=== PATIENT | female | born 1970 | race Two or more races ===

== ENCOUNTER 2017-03-29 19:01 | Emergency (ER) | payer OTHER ==
[~2017-03-29] VITALS: Ht 160 cm; Wt 63.5 kg
--- NOTE | ~2017-03-29 | CT2 ---
[facility] A Service of [facility] RADIOLOGY TEXT RESULTS PATIENT: RUTHY FUENTES LOCATION: [facility] : [birth year] UNIT #: [id number] AGE: [address]: Chinedu Conner DO SEX: F ORDER DR: [id number] [facility] [address] [place], [place] [address] [id number] E MR#: [id number] Acc #: [id number] NAME: RUTHY FUENTES : 1970 SEX: F STUDY DATE/TIME: 03/29/2017 21:24 UNIT: [facility] ROOM: STUDY DESCRIPTION: CT Abd and Pelv W Cont Attending Physician: Chinedu Conner D.O. Ordering Physician: Chinedu Conner D.O. Primary Care Physician: Primary Care Physician No MEDICAL IMAGING REPORT This report is preliminary unless electronic signature is present EXAM CT abdomen and pelvis with IV contrast HISTORY Low abdomen pain for [address] abdomen and pelvis was performed with IV contrast. This CT exam was performed with one or more of the following radiation dose reduction techniques: automatic exposure control, adjustment of mA and/or kV according to patient size, and iterative reconstruction. CT ABDOMEN: No hepatic mass or biliary dilatation. The gallbladder is contracted. Incidental focal fatty infiltration of the left hepatic lobe adjacent to the falciform ligament. The spleen, pancreas, kidneys, and adrenal glands are normal. No bowel dilatation. No ascites. Normal caliber abdominal aorta. CT PELVIS: Tiny umbilical hernia containing fat. Appendectomy. Hysterectomy. Urinary bladder is normal. IMPRESSION No acute findings in the abdomen or pelvis. Dictated by... Mainor Brooke M.D. THIS IS AN ELECTRONICALLY VERIFIED REPORT Mainor Brooke M.D. at 03/30/2017 12:20 PM [facility] A Service of [facility] RADIOLOGY TEXT RESULTS PATIENT: RUTHY FUENTES LOCATION: [facility] : 66 UNIT #: [id number] AGE: [address]: Chinedu Conner DO SEX: F ORDER DR: HUEY/barbara TD: 03/29/2017 23:21 JOB #: [id number] MEDICAL IMAGING REPORT Page 1 of 1 COPY
--- NOTE | ~2017-03-29 | EKG ---
PATIENT: GINA CALLEJAS UNIT #: [id number] Ventricular Rate: 96 BPM Atrial Rate: 96 BPM P-R Interval: 126 ms QRS Duration: 76 ms Q-T Interval: 362 ms QTC Calculation(Bezet): 457 ms P [place]: 29 degrees Calculated R [place]: 54 degrees Calculated T [place]: 36 degrees Diagnosis Line: Normal sinus rhythm Diagnosis Line: Normal ECG Diagnosis Line: No previous ECGs available Diagnosis Line: Confirmed by CLARA MCGILL MD ([id number]) on 03/31/2017 Diagnosis Line: 11:31:16 PM INTERPRETING MD: ARTEM BARRAZA
--- NOTE | ~2017-03-29 | CT16 ---
[facility] A Service of [facility] RADIOLOGY TEXT RESULTS PATIENT: RUTHY FUENTES LOCATION: [facility] : 66 UNIT #: [id number] AGE: [address]: Chinedu Conner DO SEX: F ORDER DR: [id number] [facility] [address] [place], [place] [address] [id number] E MR#: [id number] Acc #: [id number] NAME: RUTHY FUENTES : 1970 SEX: F STUDY DATE/TIME: 03/29/2017 21:24 UNIT: [facility] ROOM: STUDY DESCRIPTION: CT Angio Chest for PE Attending Physician: Chinedu Conner D.O. Ordering Physician: Chinedu Conner D.O. Primary Care Physician: Primary Care Physician No MEDICAL IMAGING REPORT This report is preliminary unless electronic signature is present EXAM CT angiogram chest with IV contrast HISTORY Shortness of air and elevated D-dimer today. FINDINGS IV contrast enhanced CT angiogram chest was performed with 3-D reconstructions. This CT exam was performed with one or more of the following radiation dose reduction techniques: automatic exposure control, adjustment of mA and/or kV according to patient size, and iterative reconstruction. There are no airspace infiltrates. Minimal linear atelectasis or scarring in the medial right middle lobe and in the posterior left lower lobe. No pleural effusions. No adenopathy. No pericardial thickening or effusion. Normal-caliber pulmonary arteries bilaterally. No evidence of pulmonary embolus. No adenopathy. IMPRESSION No acute findings. No evidence of pulmonary embolus. No active disease in the lungs. Dictated by... Mainor Brooke M.D. THIS IS AN ELECTRONICALLY VERIFIED REPORT Mainor Brooke M.D. at 03/30/2017 12:19 PM HUEY/barbara [facility] A Service of [facility] RADIOLOGY TEXT RESULTS PATIENT: RUTHY FUENTES LOCATION: [facility] : 66 UNIT #: [id number] AGE: [address]: Chinedu Conner DO SEX: F ORDER DR: TD: 03/29/2017 23:17 JOB #: [id number] MEDICAL IMAGING REPORT Page 1 of 1 COPY
--- NOTE | ~2017-03-29 | CR63 ---
[facility] A Service of [facility] RADIOLOGY TEXT RESULTS PATIENT: RUTHY FUENTES LOCATION: [facility] : 66 UNIT #: [id number] AGE: [address]: Chinedu Conner DO SEX: F ORDER DR: [id number] [facility] [address] [place], [place] [address] [id number] E MR#: [id number] Acc #: [id number] NAME: RUTHY FUENTES : 1970 SEX: F STUDY DATE/TIME: 03/29/2017 20:10 UNIT: [facility] ROOM: STUDY DESCRIPTION: CR Chest 2 View Attending Physician: Chinedu Conner D.O. Ordering Physician: Chinedu Conner D.O. Primary Care Physician: Primary Care Physician No MEDICAL IMAGING REPORT This report is preliminary unless electronic signature is present EXAM Two-view chest HISTORY Right lower quadrant abdominal pain for 3 days. FINDINGS PA and lateral examination of the chest upright shows a good expansion of the parenchyma with a normal distribution of the pulmonary vascularity. There is no indication of congestion, effusion, infiltrate, tumor, or nodular density. The pleural reflections and diaphragmatic contours are normal. The cardiac silhouette and mediastinal anatomy is within normal limits. IMPRESSION Normal chest. Dictated by... Eddie Malloy M.D. THIS IS AN ELECTRONICALLY VERIFIED REPORT Eddie Malloy M.D. at 03/31/2017 5:39 PM DOMINIQUE/catracho TD: 03/29/2017 22:07 JOB #: [id number] MEDICAL IMAGING REPORT Page 1 of 1 COPY
[2017-03-29 20:05] LABS: BASOPHIL% 0.6 % (0-2.5); EOSINOPHIL# 0.2 X10e3 (0-0.7); EOSINOPHIL% 1.8 % (0.0-7.0); HEMATOCRIT 40.9 % (35.0-45.0); HEMOGLOBIN 13.5 gm/dL (12.0-16.0); LYMPHOCYTE# 3.1 X10e3 (1.0-3.5); LYMPHOCYTE% 34.6 % (17.0-45.0); MEAN CORPUSCULAR HEMOGLOBIN 30.8 PG (28-34); MEAN CORPUSCULAR HGB CONC 33.1 g/dL (30-36); MEAN PLATELET VOLUME 8.2 FL (6.5-11.5); MONOCYTE# 0.6 X10e3 (0-1.0); MONOCYTE% 6.6 % (3.0-12.0); NEUTROPHIL# 5.1 X10e3 (1.5-7.1); NEUTROPHIL% 56.4 % (40-75); PLATELET COUNT 311 X10e3 (140-420); RED CELL DISTRIBUTION WIDTH 13.7 % (11.0-15.5)
[2017-03-29 20:06] LABS: DIFF IND NO
[2017-03-29 20:19] LABS: INR 0.9; PARTIAL THROMBOPLASTIN TIME 24.3 SECONDS (23.5-31.3)
[2017-03-29 20:29] LABS: ALKALINE PHOSPHATASE 68 U/L (32-92); ALT (SGPT) 17 U/L (10-40); AST (SGOT) 16 U/L (10-42); BILIRUBIN,TOTAL 0.2 mg/dL (0.2-2.0); BLOOD UREA NITROGEN 18 mg/dL (9-23); BUN/CREATININE RATIO 25.71; CALCIUM SERUM 9.1 mg/dL (8.4-10.2); CARBON DIOXIDE 28 mmol/L (22-31); CHLORIDE 104 mmol/L (100-111); CREATININE SERUM 0.7 mg/dL (0.6-1.4); GLOM FILT RATE Estimated 102.5 mL/min (>60); GLUCOSE FASTING 105 mg/dL (70-110); PROTEIN TOTAL SERUM 7.4 g/dL (6.0-8.3); SODIUM 139 mmol/L (135-145)
[2017-03-29 20:30] LABS: BILIRUBIN, DIRECT <0.1 mg/dL (0.0-0.2); BILIRUBIN,INDIRECT 0.1 mg/dL (0.0-0.9); POTASSIUM 3.1 mmol/L (3.5-5.1)
[2017-03-29 20:42] LABS: POC - CKMB 1.4 ng/mL (0.0-7.9); POC - TROPONIN <0.05 ng/mL (<=0.05)
[2017-03-29 20:47] LABS: URINE SOURCE CLEAN CATCH
[2017-03-29 21:10] LABS: URINE APPEARANCE CLOUDY; URINE BILIRUBIN NEG (NEG); URINE BLOOD 1+ (NEG); URINE COLOR YELLOW; URINE GLUCOSE NEG (NEG); URINE KETONE TRACE (NEG); URINE LEUKOCYTE ESTERASE TRACE (NEG); URINE NITRATE NEG (NEG); URINE PH 6.5 (5-8); URINE PROTEIN NEG (NEG)
[2017-03-29 21:12] LABS: CULTURE INDICATED? YES; URINE BACTERIA AUWI 1+ (NEGATIVE); URINE SQUAMOUS EPITHELIAL CELL FEW /[HPF]
[2017-03-29 21:19] LABS: URINE MUCUS PRESENT; URINE YEAST PRESENT
[2017-03-29 22:06] LABS: POC - CKMB <1.0 ng/mL (0.0-7.9); POC - TROPONIN <0.05 ng/mL (<=0.05)
== END 2017-03-29 23:35 | disposition home or self-care (01) ==
LOC: CED 19:01
PROVIDERS: Emergency Medicine
DX: R10.84 Generalized abdominal pain (principal); R11.2 Nausea with vomiting, unspecified; F17.200 Nicotine dependence, unspecified, uncomplicated; Z90.710 Acquired absence of both cervix and uterus
CPT/HCPCS: 36415; 71020; 71275; 74177; 80048; 80076; 81003; 82553; 82947; 83690; 84484; 85025; 85379; 85610; 85730; 87086; 93005; 96372; 96374; 96375; 99284; J0500; J2270; J2405; Q9967

== ENCOUNTER 2017-04-10 09:06 | Emergency (ER) | payer OTHER ==
[~2017-04-10] VITALS: Ht 160 cm; Wt 77.1 kg
== END 2017-04-10 10:38 | disposition home or self-care (01) ==
LOC: CED 09:06
DX: T78.40XA Allergy, unspecified, initial encounter (principal); F17.200 Nicotine dependence, unspecified, uncomplicated
CPT/HCPCS: 99283